=== PATIENT | female | born 1935 | race Two or more races ===

== ENCOUNTER 2019-02-11 07:00 | Day surgery (SDC) | payer OTHER ==
[~2019-02-11] VITALS: Ht 142.2 cm; Wt 56.7 kg
[~2019-02-11 07:00] MED LIST: AMILODIPINE PO; ASPIRIN81 M1 PO; ATORVASTATIN CA20 MG PO; CALTRATE 600 +1 EACH; COZAAR100 MG PO; TRETAL PO
[2019-02-11] MEDS ORDERED: PERCOCET 5-3251 EACH PO (11:43)
[2019-02-11] MEDS ORDERED: DULCOLAX5 MG PO (11:43)
== END 2019-02-11 13:00 | disposition home or self-care (01) ==
LOC: CIR.AMB 07:00 → EDSTATUS 11:00 → RECOVERY 11:00 → O/R 12:06 → OB/GYN 12:06 → RECOVERY 12:30 → CIR.AMB 13:00 → O/R 15:34 → OB/GYN 15:34 → O/R 16:20
DX: N81.11 Cystocele, midline (principal); N81.6 Rectocele; N81.5 Vaginal enterocele